=== PATIENT | male | born 1980 | race Caucasian/White ===

== ENCOUNTER 2016-09-04 06:43 | Emergency (ER) | payer OTHER ==
--- NOTE | 2016-09-04 07:25 | ED NURSING NOTES ---
Clinical Report - Nurses [facility] [address] [place] [address] 09/04/2016 6:45 Patient: WASHINGTON VALLE V TRIAGE Triage time 06:49 Sep 04 2016. Acuity: LEVEL 4. Chief Complaint: CONSTIPATION. --06:53 Gonzalo Shah R.N. 06:49 09/04/16. BP: 118/89. HR: 78. RR: 18. O2 saturation: 98%. Temp: 98.3 F. --06:53 Gonzalo Shah R.N. 06:55 09/04/16. Pain level now 0/10. --06:55 Gonzalo Shah R.N. Weight: 76.2 kg stated. Height/Length: 60 inches Per Patient. BMI: 32.8. --06:53 Gonzalo Shah R.N. Medications Unknown. --06:51 Gonzalo Shah R.N. Allergies No Known Drug Allergy. --06:51 Gonzalo Shah R.N. History Arrived by EMS. Historian: patient. ( Pt arrives via ems for constipation, pt last BM was "normal" and was yesterday. Pt has not taken anything at home as he does not have any money to pay for them.). SOCIAL HX: Light tobacco smoker. Occasional alcohol use. No drug use. --06:53 Gonzalo Shah R.N. ( Pt uncertain about what meds he takes, pt is legally blind can not see, hx of alcohol syndrome). --06:55 Gonzalo Shah R.N. Interventions ID band on patient. To treatment room. --06:53 Gonzalo Shah R.N. PHYSICAL ASSESSMENT ( no pain with urination). GENERAL / NEURO / PSYCH: Alert. Oriented X 4. Appears in no acute distress. RESPIRATORY: Respirations not labored. Breath sounds within normal limits. CVS: Normal sinus rhythm noted. GI / : Abdomen soft and nontender. Bowel sounds within normal limits. SKIN: Skin is warm and dry. --06:53 Gonzalo Shah R.N. NURSING PROGRESS NOTES Monitoring of patient in place. Patient gowned. Reassurance given. Call light placed in reach. Side rails up x 1. Patient ready for evaluation- chart flagged. --06:54 Gonzalo Shah R.N. DISPOSITION / DISCHARGE Departure time: 07:45. Condition at departure: unchanged. No learning barriers present. Reviewed medication(s) dosing and course information. Prescription(s) given to the patient. Treatments reviewed. Reviewed referral to family practice for followup. Reviewed need for increased fluid intake. Verbalized understanding. Written instructions provided. The patient was discharged home. He left the Emergency Department ambulatory and via ([employer]). --07:45 Carissa Medina R.N. Locked/Released at 09/09/2016 11:23 by Anuradha Herzog R.N.
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
--- NOTE | 2016-09-04 07:25 | ED NURSING NOTES ---
Clinical Report - Nurses [facility] [address] [place] [address] 09/04/2016 6:45 Patient: WASHINGTON VALLE V TRIAGE Triage time 06:49 Sep 04 2016. Acuity: LEVEL 4. Chief Complaint: CONSTIPATION. --06:53 Gonzalo Shah R.N. 06:49 09/04/16. BP: 118/89. HR: 78. RR: 18. O2 saturation: 98%. Temp: 98.3 F. --06:53 Gonzalo Shah R.N. 06:55 09/04/16. Pain level now 0/10. --06:55 Gonzalo Shah R.N. Weight: 76.2 kg stated. Height/Length: 60 inches Per Patient. BMI: 32.8. --06:53 Gonzalo Sahh R.N. Medications Unknown. --06:51 Gonzalo Shah R.N. Allergies No Known Drug Allergy. --06:51 Gonzalo Shah R.N. History Arrived by EMS. Historian: patient. ( Pt arrives via ems for constipation, pt last BM was "normal" and was yesterday. Pt has not taken anything at home as he does not have any money to pay for them.). SOCIAL HX: Light tobacco smoker. Occasional alcohol use. No drug use. --06:53 Gonzalo Shah R.N. ( Pt uncertain about what meds he takes, pt is legally blind can not see, hx of alcohol syndrome). --06:55 Gonzalo Shah R.N. Interventions ID band on patient. To treatment room. --06:53 Gonzalo Shah R.N. PHYSICAL ASSESSMENT ( no pain with urination). GENERAL / NEURO / PSYCH: Alert. Oriented X 4. Appears in no acute distress. RESPIRATORY: Respirations not labored. Breath sounds within normal limits. CVS: Normal sinus rhythm noted. GI / : Abdomen soft and nontender. Bowel sounds within normal limits. SKIN: Skin is warm and dry. --06:53 Gonzalo Shah R.N. NURSING PROGRESS NOTES Monitoring of patient in place. Patient gowned. Reassurance given. Call light placed in reach. Side rails up x 1. Patient ready for evaluation- chart flagged. --06:54 Gonzalo Shah R.N. DISPOSITION / DISCHARGE Departure time: 07:45. Condition at departure: unchanged. No learning barriers present. Reviewed medication(s) dosing and course information. Prescription(s) given to the patient. Treatments reviewed. Reviewed referral to family practice for followup. Reviewed need for increased fluid intake. Verbalized understanding. Written instructions provided. The patient was discharged home. He left the Emergency Department ambulatory and via ([employer]). --07:45 Carissa Medina R.N. Locked/Released at 09/09/2016 11:23 by Anuradha Herzog R.N.
--- NOTE | 2016-09-09 11:23 | ED MED RECONCILIATION SUMMARY ---
Patient: WASHINGTON VALLE V Medication Reconciliation Report [facility] VisitID: [id number] [address] [place] [address] 36y, M Registration Date/Time: 09/04/2016 Weight: 76.2 kg Height/Length: 60 in. BMI: 32.8 ALLERGIES: No Known Drug Allergy The patient's Home Medications are listed below: Unknown. The source(s) of the original Home Medication information: Not obtained. The following Medications were given to the patient in the Emergency Department: None. The following Medications were prescribed to the patient: Senokot 8.6 mg: Take 2 orally every day as needed for constipation until symptoms resolve. Dispense thirty (30). No refills. -- Rene Sharp Dr. Miralax: take 1 measuring cupful supplied mixed in 8 ounces juice at bedtime. Dispense twenty-six (26) ounce bottle. No refills. Substitution is permissible. -- Rene Sharp Dr. Colace 100 mg capsules (available over the counter): take 1 capsule orally and twice daily as needed for constipation, until symptoms improve. No refill. Substitution is permissible.(Disp 30 caps) -- Rene Sharp Dr.
--- NOTE | 2016-09-09 11:23 | ED MED RECONCILIATION SUMMARY ---
Patient: WASHINGTON VALLE V Medication Reconciliation Report [facility] VisitID: [id number] [address] [place] [address] 36y, M Registration Date/Time: 09/04/2016 Weight: 76.2 kg Height/Length: 60 in. BMI: 32.8 ALLERGIES: No Known Drug Allergy The patient's Home Medications are listed below: Unknown. The source(s) of the original Home Medication information: Not obtained. The following Medications were given to the patient in the Emergency Department: None. The following Medications were prescribed to the patient: Senokot 8.6 mg: Take 2 orally every day as needed for constipation until symptoms resolve. Dispense thirty (30). No refills. -- Rene Sharp Dr. Miralax: take 1 measuring cupful supplied mixed in 8 ounces juice at bedtime. Dispense twenty-six (26) ounce bottle. No refills. Substitution is permissible. -- Rene Sharp Dr. Colace 100 mg capsules (available over the counter): take 1 capsule orally and twice daily as needed for constipation, until symptoms improve. No refill. Substitution is permissible.(Disp 30 caps) -- Rene Sharp Dr.
--- NOTE | 2016-09-09 11:23 | ED DISCHARGE INSTRUCTIONS ---
Patient: WASHINGTON VALLE V General Instructions [facility] VisitID: [id number] [address] [place] [address] 36y, M Registration Date/Time: 09/04/2016 Constipation (acute). INSTRUCTIONS Warnings: GENERAL WARNINGS: Return or contact your physician immediately if your condition worsens or changes unexpectedly, if not improving as expected, or if other problems arise. Specifically return if pain, vomiting, bleeding, breathing difficulty or fever. Your Current Medications: CONTINUE TAKING THE FOLLOWING MEDICATIONS: Unknown*. Prescription Medications: Miralax: take 1 measuring cupful supplied mixed in 8 ounces juice at bedtime. Dispense twenty-six (26) ounce bottle. No refills. Substitution is permissible. OTC Medications: Senokot 8.6 mg: Take 2 orally every day as needed for constipation until symptoms resolve. Dispense thirty (30). No refills. Colace 100 mg capsules (available over the counter): take 1 capsule orally and twice daily as needed for constipation, until symptoms improve. No refill. Substitution is permissible. (Disp 30 caps) Follow-up: Return to the emergency department as needed. Follow up with your doctor in three days. Reason for referral: recheck today's concerns. Summary of care provided to patient via paper. Screening today revealed the patient's blood pressure to be in the normal range. The patient should follow up with a primary care provider for blood pressure management. ADDITIONAL INFORMATION Constipation (Adult) Constipation is bowel movements that are less frequent than usual. Stools often become very hard and difficult to pass. This may lead to abdominal pain and bloating. It may also cause painful bowel movements. Constipation may be due to a diet thats low in fiber. Some medications, especially pain medications, can also cause it. Constipation may be treated with enemas, suppositories, laxatives or stool softeners. Your doctor will advise you which will work best for you. Follow the advice below to help avoid this problem in the future. Home Care Medication: Take any medicines as directed. Some laxatives are safe only for occasional use. Others can be taken on a regular basis. Talk to your doctor or pharmacist if you have questions. General Care: Prescription pain medications can cause constipation. If you are prescribed pain medications, ask the doctor whether you should also take a stool softener. A diet high in fiber with plenty of fluids helps to maintain regular, soft bowel movements. The following foods are good sources of dietary fiber: Cereals and breads: Whole grain cereal with bran, oatmeal, rolled oats, whole grain breads Fruits: All fruits (fresh and dried), raisins, prunes, apricots, berries, figs Vegetables: Any fresh vegetables, especially peas, broccoli, brussels sprouts, winter squash, green beans, cauliflower, ponce beans, carrots Other: Popcorn, brown rice Drink plenty of water when you increase the amount of fiber you eat. Follow Up with your doctor or return to this facility if symptoms do not improve in the next few days. You may require further tests or a referral to a specialist. Get Prompt Medical Attention if any of the following occur: Fever over 100.4F (38C) Failure to resume normal bowel movements Increasing abdominal or back pain Nausea or vomiting Abdominal swelling Blood in the stool Weakness, dizziness or fainting Unexpected vaginal bleeding Docusate Sodium Oral tablet What is this medicine? DOCUSATE (doc CUE sayt) is stool softener. It helps prevent constipation and straining or discomfort associated with hard or dry stools. How should I use this medicine? Take this medicine by mouth with a glass of water. Follow the directions on the label. Take your doses at regular intervals. Do not take your medicine more often than directed. Talk to your trade recruiter regarding the use of this medicine in children. While this medicine may be prescribed for children as young as 2 years for selected conditions, precautions do apply. What side effects may I notice from receiving this medicine? Side effects that you should report to your doctor or health medicare sales executive as soon as possible: allergic reactions like skin rash, itching or hives, swelling of the face, lips, or tongue Side effects that usually do not require medical attention (report to your doctor or health medicare sales executive if they continue or are bothersome): diarrhea stomach cramps throat irritation What may interact with this medicine? mineral oil What if I miss a dose? If you miss a dose, take it as soon as you can. If it is almost time for your next dose, take only that dose. Do not take double or extra doses. Where should I keep my medicine? Keep out of the reach of children. Store at room temperature between 15 and 30 degrees C (59 and 86 degrees F). Throw away any unused medicine after the expiration date. What should I tell my health care provider before I take this medicine? They need to know if you have any of these conditions: nausea or vomiting severe constipation stomach pain sudden change in bowel habit lasting more than 2 weeks an unusual or allergic reaction to docusate, other medicines, foods, dyes, or preservatives or trying to get breast-feeding What should I watch for while using this medicine? Do not use for more than one week without advice from your doctor or health medicare sales executive. If your constipation returns, check with your doctor or health medicare sales executive. Drink plenty of water while taking this medicine. Drinking water helps decrease constipation. Stop using this medicine and contact your doctor or health medicare sales executive if you experience any rectal bleeding or do not have a bowel movement after use. These could be signs of a more serious condition. You have been given the following additional information: Constipation (Adult) Docusate Sodium Oral tablet (Electronically signed by Rene Sharp Dr. 09/08/2016 9:03)
--- NOTE | 2016-09-09 11:23 | ED DISCHARGE INSTRUCTIONS ---
Patient: WASHINGTON VALLE V General Instructions [facility] VisitID: [id number] [address] [place] [address] 36y, M Registration Date/Time: 09/04/2016 Constipation (acute). INSTRUCTIONS Warnings: GENERAL WARNINGS: Return or contact your physician immediately if your condition worsens or changes unexpectedly, if not improving as expected, or if other problems arise. Specifically return if pain, vomiting, bleeding, breathing difficulty or fever. Your Current Medications: CONTINUE TAKING THE FOLLOWING MEDICATIONS: Unknown*. Prescription Medications: Miralax: take 1 measuring cupful supplied mixed in 8 ounces juice at bedtime. Dispense twenty-six (26) ounce bottle. No refills. Substitution is permissible. OTC Medications: Senokot 8.6 mg: Take 2 orally every day as needed for constipation until symptoms resolve. Dispense thirty (30). No refills. Colace 100 mg capsules (available over the counter): take 1 capsule orally and twice daily as needed for constipation, until symptoms improve. No refill. Substitution is permissible. (Disp 30 caps) Follow-up: Return to the emergency department as needed. Follow up with your doctor in three days. Reason for referral: recheck today's concerns. Summary of care provided to patient via paper. Screening today revealed the patient's blood pressure to be in the normal range. The patient should follow up with a primary care provider for blood pressure management. ADDITIONAL INFORMATION Constipation (Adult) Constipation is bowel movements that are less frequent than usual. Stools often become very hard and difficult to pass. This may lead to abdominal pain and bloating. It may also cause painful bowel movements. Constipation may be due to a diet thats low in fiber. Some medications, especially pain medications, can also cause it. Constipation may be treated with enemas, suppositories, laxatives or stool softeners. Your doctor will advise you which will work best for you. Follow the advice below to help avoid this problem in the future. Home Care Medication: Take any medicines as directed. Some laxatives are safe only for occasional use. Others can be taken on a regular basis. Talk to your doctor or pharmacist if you have questions. General Care: Prescription pain medications can cause constipation. If you are prescribed pain medications, ask the doctor whether you should also take a stool softener. A diet high in fiber with plenty of fluids helps to maintain regular, soft bowel movements. The following foods are good sources of dietary fiber: Cereals and breads: Whole grain cereal with bran, oatmeal, rolled oats, whole grain breads Fruits: All fruits (fresh and dried), raisins, prunes, apricots, berries, figs Vegetables: Any fresh vegetables, especially peas, broccoli, brussels sprouts, winter squash, green beans, cauliflower, ponce beans, carrots Other: Popcorn, brown rice Drink plenty of water when you increase the amount of fiber you eat. Follow Up with your doctor or return to this facility if symptoms do not improve in the next few days. You may require further tests or a referral to a specialist. Get Prompt Medical Attention if any of the following occur: Fever over 100.4F (38C) Failure to resume normal bowel movements Increasing abdominal or back pain Nausea or vomiting Abdominal swelling Blood in the stool Weakness, dizziness or fainting Unexpected vaginal bleeding Docusate Sodium Oral tablet What is this medicine? DOCUSATE (doc CUE sayt) is stool softener. It helps prevent constipation and straining or discomfort associated with hard or dry stools. How should I use this medicine? Take this medicine by mouth with a glass of water. Follow the directions on the label. Take your doses at regular intervals. Do not take your medicine more often than directed. Talk to your associate software engineer regarding the use of this medicine in children. While this medicine may be prescribed for children as young as 2 years for selected conditions, precautions do apply. What side effects may I notice from receiving this medicine? Side effects that you should report to your doctor or health foster care therapist as soon as possible: allergic reactions like skin rash, itching or hives, swelling of the face, lips, or tongue Side effects that usually do not require medical attention (report to your doctor or health foster care therapist if they continue or are bothersome): diarrhea stomach cramps throat irritation What may interact with this medicine? mineral oil What if I miss a dose? If you miss a dose, take it as soon as you can. If it is almost time for your next dose, take only that dose. Do not take double or extra doses. Where should I keep my medicine? Keep out of the reach of children. Store at room temperature between 15 and 30 degrees C (59 and 86 degrees F). Throw away any unused medicine after the expiration date. What should I tell my health care provider before I take this medicine? They need to know if you have any of these conditions: nausea or vomiting severe constipation stomach pain sudden change in bowel habit lasting more than 2 weeks an unusual or allergic reaction to docusate, other medicines, foods, dyes, or preservatives or trying to get breast-feeding What should I watch for while using this medicine? Do not use for more than one week without advice from your doctor or health foster care therapist. If your constipation returns, check with your doctor or health foster care therapist. Drink plenty of water while taking this medicine. Drinking water helps decrease constipation. Stop using this medicine and contact your doctor or health foster care therapist if you experience any rectal bleeding or do not have a bowel movement after use. These could be signs of a more serious condition. You have been given the following additional information: Constipation (Adult) Docusate Sodium Oral tablet (Electronically signed by Rene Sharp Dr. 09/08/2016 9:03)
--- NOTE | 2016-09-09 11:23 | ED MAR SUMMARY ---
..... Medication Administration Record [facility] [address], [place] [id number] Patient: WASHINGTON VALLE V Visit ID: [id number] 36y, M Weight: 76.2 kg Height/Length: 60 in BMI: 32.8 ALLERGIES: No Known Drug Allergy
--- NOTE | 2016-09-09 11:23 | ED MAR SUMMARY ---
..... Medication Administration Record [facility] [address], [place] [id number] Patient: WASHINGTON VALLE V Visit ID: [id number] 36y, M Weight: 76.2 kg Height/Length: 60 in BMI: 32.8 ALLERGIES: No Known Drug Allergy
== END 2016-09-04 07:45 | disposition home or self-care (01) ==
LOC: ED SRH 06:43 → EDBD 06:46 → ED SRH 07:45
DX: K59.00 Constipation, unspecified (principal)

== ENCOUNTER 2016-11-29 20:57 | Emergency (ER) | payer OTHER ==
--- NOTE | 2016-11-29 22:34 | ED ORDER SUMMARY ---
..... Patient: WASHINGTON VALLE V OrderSheet [facility] VisitID: [id number] [place] [address] 36y, M Registration Date/Time: 11/29/2016 ORDER SHEET Weight: 68.0 kg (stated) Allergies: Ritalin GENERAL ORDERS: CBC w Diff Urgent (21:42 11/29/2016 CBradburn R.N. per protocol) (Ack 21:48 AMcQuoid ER Tech1) (21:48 CBradburn R.N.) CMP Urgent (21:42 11/29/2016 CBradburn R.N. per protocol) (Ack 21:48 AMcQuoid ER Tech1) (21:48 CBradburn R.N.) UA-Culture if indicated Urgent (21:42 11/29/2016 CBradburn R.N. per protocol) (Ack 21:48 AMcQuoid ER Tech1) (21:48 CBradburn R.N.) Rapid Influenza Screen (Nasal Pharyngeal) (nasal for flu) Urgent (21:46 11/29/2016 ABlanchette PA-C) (Ack 21:48 AMcQuoid ER Tech1) (22:02 CBradburn R.N.) Culture, Throat Urgent (21:47 11/29/2016 ABlanchette PA-C) (Ack 21:48 AMcQuoid ER Tech1) (22:02 CBradburn R.N.) Culture, Strep Screen Urgent (21:47 11/29/2016 ABlanchette PA-C) (Ack 21:48 AMcQuoid ER Tech1) (22:02 CBradburn R.N.) Chest 2V (sudden onset fever and chills r/o pneumonia, smoker) Urgent (21:56 11/29/2016 ABlanchette PA-C) (Ack 21:57 AMcQuoid ER Tech1) (22:07 CBradburn R.N.) MEDICATION ORDERS: Ibuprofen PO 800 mg (NOW) (21:47 11/29/2016 ABlanchette PA-C) (Ack 21:49 CBradburn R.N.) (22:04 CBradburn R.N.) Tamiflu PO 75 mg (NOW) (22:27 11/29/2016 Liv DODD) (22:29 HSkan) IV FLUIDS: IV NS with Normal Saline 1 Liter: initial bolus none -, then 1000 mL/hr for X1 (NOW) (21:47 11/29/2016 Liv DODD) (Ack 21:49 Meet R.N.) (22:04 Meet R.N.) ORDER SHEET NOTES: [Electronically signed by Lidya Martinez R.N. (22:58 11/29/2016)] [Electronically signed by Kasey Apple PA-C (23:51 11/29/2016)] [Electronically locked/signed by Lidya Martinez R.N. (22:58 11/29/2016)]
--- NOTE | 2016-11-29 22:34 | ED NURSING NOTES ---
Clinical Report - Nurses [facility] [address] [place] [address] 11/29/2016 21:02 Patient: WASHINGTON VALLE V TRIAGE Triage time 21:17. Chief Complaint: FEVER, COUGH, SORE THROAT and BODY ACHES. --21:26 Lidya Martinez R.N. 21:17 11/29/16. BP: 157/74. HR: 117. RR: 18. O2 saturation: 97%. Temp: 102.4 F (oral). Pain level now: 02/16. --21:26 Lidya Martinez R.N. Weight: 68 kg stated. Height/Length: 60 inches Per Patient. BMI: 29.3. --21:24 Lidya Martinez R.N. Medications Omeprazole Oral. --21:19 Lidya Martinez R.N. Allergies Ritalin. Definite Moderate(anxiety) --21:20 Lidya Martinez R.N. History Arrived by EMS, and from home (stretcher). Primary physician (colette). This started today. He has had contact with a sick individual. He has had chest congestion, chills, fatigue, a headache and vomiting. PAST MEDICAL HX: Immunizations: up-to-date. SOCIAL HX: Current every day heavy tobacco smoker, start date 2011 (cigarette)- 1 pack per day. Occasional alcohol use; consumes beer occasionally. No drug use. --21:26 Lidya Martinez R.N. 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 --21:22 Lidya Martinez R.N. Interventions ID band on patient. --21:26 Lidya Martinez R.N. PHYSICAL ASSESSMENT To room via stretcher. GENERAL / NEURO / PSYCH: Alert. Oriented X 4. Appears in pain. HEENT: Pupils equal, round and reactive to light. Sinus tenderness present. Runny nose. RESPIRATORY: Respirations not labored. Breath sounds within normal limits. CVS: Capillary refill is greater than 2 seconds. Pulses within normal limits. GI / : Abdomen nontender. SKIN: Skin intact. Skin is dry. Hot skin. --21:27 Lidya Martinez R.N. NURSING PROGRESS NOTES 21:28 11/29/2016 Site #1 started via IV in the left antecubital space with an 20g angiocath, with aseptic technique and good blood return; one attempt. Blood drawn: rainbow set. Labeled in the presence of the patient and sent to the lab. Saline lock flushed with 10 mL saline. --21:28 Lidya Martinez R.N. Patient gowned. Two patient identifiers checked. Call light placed in reach. Side rails up x 1. Bed placed in lowest position. Brakes of bed on. --21:28 Lidya Martinez R.N. Patient ready for evaluation- chart flagged. --21:29 Lidya Martinez R.N. Patient ID band checked for patient name and birthdate. Instructions provided to collect clean catch urine and patient verbalized understanding urine collected with return of yellow-colored clear urine; sample sent to lab for urinalysis. Specimen labeled in the presence of the patient. Two patient identifiers checked. Call light placed in reach. Side rails up x 1. Bed placed in lowest position. Brakes of bed on. --21:43 Lidya Martinez R.N. 21:53 11/29/2016 Started bag #1 1000 mL IV Fluids IV NS (Saline); bolus of 1000 mL wide open via site #1. Allergies verified and confirmed 5 rights. IV patency established. IV site checked: no pain, redness, or swelling. IV flushed thoroughly pre- and post-medication administration. --22:04 Lidya Martinez R.N. 21:55 11/29/2016 Ibuprofen PO Tablets 800 mg given. Allergies verified and confirmed 5 rights. --22:04 Lidya Martinez R.N. Patient ID band checked for patient name and birthdate: patient confirmed. Flu swab obtained by RN via nasal swab. Labeled in the presence of the patient. Patient ID band checked for patient name and birthdate: patient confirmed. Throat swab obtained for rapid strep and culture; labeled in the presence of the patient and sent to lab. --22:06 Lidya Martinez R.N. 22:04 11/29/16. BP: 155/92. HR: 117. RR: 18. O2 saturation: 97% on room air. Temp: deferred. Pain level now: 4/10. --22:06 Lidya Martinez R.N. Patient transported to radiology by stretcher with tech. (22:06). --22:07 Lidya Martinez R.N. Patient returned from radiology by stretcher with tech. (22:11 Nov 29 2016). --22:11 KalpanaDiane brewer Patient returned from radiology by stretcher with tech. (22:12). --22:12 Lidya Martinez R.N. 22:29 11/29/2016 Tamiflu PO Capsules 75 mg given. Allergies verified and confirmed 5 rights. --22:29 Diane Acuna. DISPOSITION / DISCHARGE 22:49 11/29/2016 Site #1 removed upon discharge. Catheter intact. Manual pressure and bandage applied. --22:55 Lidya Martinez R.N. 22:49 11/29/2016 IV Fluids IV NS Discontinued: bag #1 completed upon discharge. Total amount infused: 1000 mL. IV patency established. IV site checked: no pain, redness, or swelling. IV flushed thoroughly. --22:55 Lidya Martinez R.N. Departure time: 2248. Condition at departure: unchanged. No learning barriers present. Discharge instructions provided and reviewed with the patient. Reviewed medication(s) side effects, precautions, dosing and course information. Prescription(s) given to the patient. Work note given. Patient verbalized understanding. Written instructions provided in Frisian. The patient was discharged by the physician senior executive assistant. He was discharged home. He left the Emergency Department in a wheelchair and via ([employer] link transportation). Driving (private transportation). --22:58 Lidya Martinez R.N. 22:52 11/29/16. BP: 152/81. HR: 116. RR: 18. O2 saturation: 97% on room air. Temp: 101.9 F. Pain level now: 0/10. --22:58 Lidya Martinez R.N. Locked/Released at 11/29/2016 22:58 by Lidya Martinez R.N.
--- NOTE | 2016-11-29 22:34 | ED NURSING NOTES ---
Clinical Report - Nurses [facility] [address] [place] [address] 11/29/2016 21:02 Patient: WASHINGTON VALLE V TRIAGE Triage time 21:17. Chief Complaint: FEVER, COUGH, SORE THROAT and BODY ACHES. --21:26 Lidya Martinez R.N. 21:17 11/29/16. BP: 157/74. HR: 117. RR: 18. O2 saturation: 97%. Temp: 102.4 F (oral). Pain level now: 02/16. --21:26 Lidya Martinez R.N. Weight: 68 kg stated. Height/Length: 60 inches Per Patient. BMI: 29.3. --21:24 Lidya Martinez R.N. Medications Omeprazole Oral. --21:19 Lidya Martinez R.N. Allergies Ritalin. Definite Moderate(anxiety) --21:20 Lidya Martinez R.N. History Arrived by EMS, and from home (stretcher). Primary physician (colette). This started today. He has had contact with a sick individual. He has had chest congestion, chills, fatigue, a headache and vomiting. PAST MEDICAL HX: Immunizations: up-to-date. SOCIAL HX: Current every day heavy tobacco smoker, start date 2011 (cigarette)- 1 pack per day. Occasional alcohol use; consumes beer occasionally. No drug use. --21:26 Lidya Martinez R.N. 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 --21:22 Lidya Martinez R.N. Interventions ID band on patient. --21:26 Lidya Martinez R.N. PHYSICAL ASSESSMENT To room via stretcher. GENERAL / NEURO / PSYCH: Alert. Oriented X 4. Appears in pain. HEENT: Pupils equal, round and reactive to light. Sinus tenderness present. Runny nose. RESPIRATORY: Respirations not labored. Breath sounds within normal limits. CVS: Capillary refill is greater than 2 seconds. Pulses within normal limits. GI / : Abdomen nontender. SKIN: Skin intact. Skin is dry. Hot skin. --21:27 Lidya Martinez R.N. NURSING PROGRESS NOTES 21:28 11/29/2016 Site #1 started via IV in the left antecubital space with an 20g angiocath, with aseptic technique and good blood return; one attempt. Blood drawn: rainbow set. Labeled in the presence of the patient and sent to the lab. Saline lock flushed with 10 mL saline. --21:28 Lidya Martinez R.N. Patient gowned. Two patient identifiers checked. Call light placed in reach. Side rails up x 1. Bed placed in lowest position. Brakes of bed on. --21:28 Lidya Martinez R.N. Patient ready for evaluation- chart flagged. --21:29 Lidya Martinez R.N. Patient ID band checked for patient name and birthdate. Instructions provided to collect clean catch urine and patient verbalized understanding urine collected with return of yellow-colored clear urine; sample sent to lab for urinalysis. Specimen labeled in the presence of the patient. Two patient identifiers checked. Call light placed in reach. Side rails up x 1. Bed placed in lowest position. Brakes of bed on. --21:43 Lidya Martinez R.N. 21:53 11/29/2016 Started bag #1 1000 mL IV Fluids IV NS (Saline); bolus of 1000 mL wide open via site #1. Allergies verified and confirmed 5 rights. IV patency established. IV site checked: no pain, redness, or swelling. IV flushed thoroughly pre- and post-medication administration. --22:04 Lidya Martinez R.N. 21:55 11/29/2016 Ibuprofen PO Tablets 800 mg given. Allergies verified and confirmed 5 rights. --22:04 Lidya Martinez R.N. Patient ID band checked for patient name and birthdate: patient confirmed. Flu swab obtained by RN via nasal swab. Labeled in the presence of the patient. Patient ID band checked for patient name and birthdate: patient confirmed. Throat swab obtained for rapid strep and culture; labeled in the presence of the patient and sent to lab. --22:06 Lidya Martinez R.N. 22:04 11/29/16. BP: 155/92. HR: 117. RR: 18. O2 saturation: 97% on room air. Temp: deferred. Pain level now: 4/10. --22:06 Lidya Martinez R.N. Patient transported to radiology by stretcher with tech. (22:06). --22:07 Lidya Martinez R.N. Patient returned from radiology by stretcher with tech. (22:11 Nov 29 2016). --22:11 KalpanaDiane brewer Patient returned from radiology by stretcher with tech. (22:12). --22:12 Lidya Martinez R.N. 22:29 11/29/2016 Tamiflu PO Capsules 75 mg given. Allergies verified and confirmed 5 rights. --22:29 Diane Acuna. DISPOSITION / DISCHARGE 22:49 11/29/2016 Site #1 removed upon discharge. Catheter intact. Manual pressure and bandage applied. --22:55 Lidya Martinez R.N. 22:49 11/29/2016 IV Fluids IV NS Discontinued: bag #1 completed upon discharge. Total amount infused: 1000 mL. IV patency established. IV site checked: no pain, redness, or swelling. IV flushed thoroughly. --22:55 Lidya Martinez R.N. Departure time: 2248. Condition at departure: unchanged. No learning barriers present. Discharge instructions provided and reviewed with the patient. Reviewed medication(s) side effects, precautions, dosing and course information. Prescription(s) given to the patient. Work note given. Patient verbalized understanding. Written instructions provided in Armenian. The patient was discharged by the physician educational program assistant. He was discharged home. He left the Emergency Department in a wheelchair and via ([employer] link transportation). Driving (private transportation). --22:58 Lidya aMrtinez R.N. 22:52 11/29/16. BP: 152/81. HR: 116. RR: 18. O2 saturation: 97% on room air. Temp: 101.9 F. Pain level now: 0/10. --22:58 Lidya Martinez R.N. Locked/Released at 11/29/2016 22:58 by Lidya Martinez R.N.
--- NOTE | 2016-11-29 22:34 | ED CLINICAL REPORT ---
Clinical Report - Physicians/Mid Levels [facility] [address] [place] [address] 11/29/2016 21:02 Patient: WASHINGTON VALLE V Time Seen: 21:45; initial patient contact. Arrived- By private vehicle. Historian- patient. HISTORY OF PRESENT ILLNESS Chief Complaint: COUGH, FEVER, CHILLS and MUSCLE ACHES. This started today pt was in a van coming home from [facility] when he developed fever, chills, and body aches, with sore throat. he has a history of FAS. and is still present and worsening. The illness is described as moderate. The patient has had sputum production, a cough, a sore throat, nasal congestion and sinus pressure. He has had fever of 102 F, chills and a nasal discharge. Additional history - No known contact with a sick individual. He has had recent travel. Similar symptoms previously: None. Recent medical care: Not recently seen/assessed. REVIEW OF SYSTEMS The patient has had a mild headache. No nausea, vomiting, diarrhea or abdominal pain. All systems otherwise negative, except as recorded above. PAST HISTORY See nurses notes. 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 Constipation. Medications: Omeprazole Oral. Allergies: Ritalin. Definite Moderate(anxiety). SOCIAL HISTORY Heavy tobacco smoker (cigarette)- 1 pack per day. Alcohol use. No drug use. FAMILY HISTORY Negative. ADDITIONAL NOTES The nursing notes have been reviewed with agreement regarding the chief complaint, HPI, ROS, PMH and patient medications and allergies. PHYSICAL EXAM Vital Signs: 11/29/2016 22:52 BP: 152/81. HR: 116. RR: 18. O2 saturation: 97%. Temp: 101.9 F. Pain level now: 010. 11/29/2016 22:04 BP: 155/92. HR: 117. RR: 18. O2 saturation: 97%. Pain level now: 11/17. 11/29/2016 21:17 BP: 157/74. HR: 117. RR: 18. O2 saturation: 97%. Temp: 102.4 F. Pain level now: 02/16. Have been reviewed. Appearance: Alert. No acute distress. Eyes: Pupils equal, round and reactive to light. ENT: Ears normal. Nose normal. Mild generalized pharyngeal erythema. No pharyngeal vesicles or ulcerations. Pharynx normal. Uvula midline. Neck: Normal inspection. Neck supple. CVS: Tachycardia. Heart sounds normal. Pulses normal. Respiratory: No respiratory distress. Breath sounds normal. Abdomen: Soft and nontender. No organomegaly. Back: Normal inspection. Skin: Skin warm and dry. Normal skin color. No rash. Normal skin turgor. Extremities: Extremities exhibit normal ROM. No lower extremity edema. Neuro: Oriented X 3. LABS, X-RAYS, AND EKG Chest X-ray: No acute disease. Normal Chest X-Ray. (Name: Washington Valle : 1980 MR#: [id number] Ordering Provider: SEGUNDO ANNA Exam(s): XR CHEST 2 VIEW Date of Exam: 11/29/2016 __ PROCEDURE: XR CHEST 2 VIEW INDICATION: SHORTNESS OF BREATH TECHNIQUE: PA and lateral view. COMPARISON: None. FINDINGS: Poor inspiration with mild bibasilar atelectasis. Cardiovascular structures are normal. Bony thorax is unremarkable. IMPRESSION: 1. Poor aspiration with mild bibasilar atelectasis. Electronically Final signed by:Sharath Slade MD 11/29/2016 11:07:21 PM Technologist: ARAMIS). The X-rays were independently viewed by me, interpreted by the radiologist and discussed with the radiologist. Laboratory Tests: UA-Culture if indicated: (YOVANI: 11/29/2016 21:34) ( MsgRcvd 11/29/2016 22:04) Final results Test Result Flag Units (Reference) URINE COLOR YELLOW URINE APPEARANCE CLEAR URINE GLUCOSE NEGATIVE (NEGATIVE) URINE BILIRUBIN NEGATIVE (NEGATIVE) URINE KETONE NEGATIVE (NEGATIVE) URINE SPECIFIC GRAVITY 1.010 (1.010-1.030) URINE PH 6.0 (5.0-8.0) URINE PROTEIN NEGATIVE (NEGATIVE) URINE UROBILINOGEN 0.2 EU/dL (0.2-1.0) URINE NITRITE NEGATIVE (NEGATIVE) URINE BLOOD TRACE-INTACT (NEGATIVE) URINE LEUK ESTERASE NEGATIVE (NEGATIVE) URINE RBC RARE rbc/hpf (0-1) URINE WBC NONE SEEN wbc/hpf (0-1) URINE EPITHELIAL CELLS NONE SEEN EPI/hpf (0-5) URINE BACTERIA NONE SEEN (NONE SEEN) URINE COMMENT CULT NOT INDICATED URINE CULTURES ARE SET-UP BASED ON THE FOLLOWING CRITERIA:POSITIVE NITRITEPOSITIVE LEUKOCYTE ESTERASEGREATER THAN 10 WHITE BLOOD CELLSMODERATE (2+) OR GREATER BACTERIA CBC w Diff: (YOVANI: 11/29/2016 21:20) ( [facility] [place] [facility] [place]01) Final results Test Result Flag Units (Reference) WHITE BLOOD COUNT 11.1 K/uL (4.5-11.5) RED BLOOD COUNT 5.26 M/uL (4.50-5.90) HEMOGLOBIN 15.2 gm/dL (13.5-17.5) HEMATOCRIT 44.9 % (41.0-53.0) MEAN CELL VOLUME 86 fL (80-100) MEAN CORPUSCULAR HGB 29 pg (26-34) MEAN CORPUSCULAR HGB CONC 34 g/dL (31-37) RED CELL DISTRIBUTION WIDTH 13.5 % (11.6-14.8) PLATELET COUNT 163 K/uL (150-400) NEUTROPHIL % 85.0 H % (50-75) LYMPH % 10.9 L % (25-40) MONO % 3.4 % (3-14) EOSINOPHIL % 0.7 % (0-4) BASOPHIL % 0 % (0-2) CMP: (YOVANI: 11/29/2016 21:20) ( [facility] [place] 11/29/2016 22:14) Final results Test Result Flag Units (Reference) GLUCOSE 120 H mg/dL (70-110) BUN 13 mg/dL (7-18) CREATININE 1.1 mg/dL (0.6-1.3) Estimated GFR >60 mL/min Estimated GFR- >60 mL/min Note: Persistent reduction over 3 months in eGFR<60 mL/min/1.73 m2 defines CKD. Patients with eGFR values>=60 mL/min/1.73 m2 may also have CKD if evidence ofpersistent proteinuria. Additional information may be foundat [email or web address]. SODIUM 141 mmol/L (136-145) POTASSIUM 3.8 mmol/L (3.5-5.1) CHLORIDE 104 mmol/L (98-107) CARBON DIOXIDE 26 mmol/L (21-32) CALCIUM 9.9 mg/dL (8.5-10.1) TOTAL PROTEIN 7.9 g/dL (6.4-8.2) ALBUMIN 4.3 g/dL (3.3-5.0) BILIRUBIN, TOTAL 0.3 mg/dL (0.0-1.0) ALKALINE PHOSPHATASE 95 U/L (46-116) AST (SGOT) 31 U/L (15-37) ALT (SGPT) 40 U/L (12-78) Culture, Strep Screen: (YOVANI: 11/29/2016 21:50) ( MsgRcvd 11/29/2016 22:26) Final results Test Result Flag Units (Reference) RAPID STREP SCREEN - THROAT DATE: 11/29/16 NEGATIVE SCREEN: RAPID STREP SCREEN NEGATIVE; CONFIRMATION TO FOLLOW Rapid Influenza Screen: (YOVANI: 11/29/2016 21:54) ( MsgRcvd 11/29/2016 22:26) Final results SPECIMEN DESCRIPTION: NASAL FOR FLU Test Result Flag Units (Reference) RAPID INFLUENZA SCREEN CALLED TO: ANIA -- DATE: 11/29/16 INFLUENZA A: NEGATIVE SCREEN FOR INFLUENZA A INFLUENZA B: POSITIVE SCREEN FOR INFLUENZA B . PROGRESS AND PROCEDURES Course of Care: Patient is stable. Physical exam findings are unchanged. CLINICAL IMPRESSION Influenza type B with pharyngitis. INSTRUCTIONS Alternate Tylenol (Acetaminophen) or Motrin (Ibuprofen) for temperature greater than 100 degrees orally. Take according to label instructions. Rest for three days until better. Do not work for four days until better. Drink plenty of fluids. Do not smoke. No alcohol. Warnings: GENERAL WARNINGS: Return or contact your physician immediately if your condition worsens or changes unexpectedly, if not improving as expected, or if other problems arise. Your Current Medications: CONTINUE TAKING THE FOLLOWING MEDICATIONS: Omeprazole Oral. Prescription Medications: Tamiflu 75 mg: take 1 capsule orally every 12 hours for 5 days. No refill. Substitution is permissible. Follow-up: Follow up with your doctor Thursday if not better. Understanding of the discharge instructions verbalized by patient. (Electronically signed by Segundo Anna PA-C 11/29/2016 23:51)
--- NOTE | 2016-11-29 22:34 | ED ORDER SUMMARY ---
..... Patient: WASHINGTON VALLE V OrderSheet [facility] VisitID: [id number] [place] [place] [address] 36y, M Registration Date/Time: 11/29/2016 ORDER SHEET Weight: 68.0 kg (stated) Allergies: Ritalin GENERAL ORDERS: CBC w Diff Urgent (21:42 11/29/2016 CBradburn R.N. per protocol) (Ack 21:48 AMcQuoid ER Tech1) (21:48 CBradburn R.N.) CMP Urgent (21:42 11/29/2016 CBradburn R.N. per protocol) (Ack 21:48 AMcQuoid ER Tech1) (21:48 CBradburn R.N.) UA-Culture if indicated Urgent (21:42 11/29/2016 CBradburn R.N. per protocol) (Ack 21:48 AMcQuoid ER Tech1) (21:48 CBradburn R.N.) Rapid Influenza Screen (Nasal Pharyngeal) (nasal for flu) Urgent (21:46 11/29/2016 ABlanchette PA-C) (Ack 21:48 AMcQuoid ER Tech1) (22:02 CBradburn R.N.) Culture, Throat Urgent (21:47 11/29/2016 ABlanchette PA-C) (Ack 21:48 AMcQuoid ER Tech1) (22:02 CBradburn R.N.) Culture, Strep Screen Urgent (21:47 11/29/2016 ABlanchette PA-C) (Ack 21:48 AMcQuoid ER Tech1) (22:02 CBradburn R.N.) Chest 2V (sudden onset fever and chills r/o pneumonia, smoker) Urgent (21:56 11/29/2016 ABlanchette PA-C) (Ack 21:57 AMcQuoid ER Tech1) (22:07 CBradburn R.N.) MEDICATION ORDERS: Ibuprofen PO 800 mg (NOW) (21:47 11/29/2016 ABlanchette PA-C) (Ack 21:49 CBradburn R.N.) (22:04 CBradburn R.N.) Tamiflu PO 75 mg (NOW) (22:27 11/29/2016 Liv DODD) (22:29 HSkan) IV FLUIDS: IV NS with Normal Saline 1 Liter: initial bolus none -, then 1000 mL/hr for X1 (NOW) (21:47 11/29/2016 Liv DODD) (Ack 21:49 Meet R.N.) (22:04 Meet R.N.) ORDER SHEET NOTES: [Electronically signed by Lidya Martinez R.N. (22:58 11/29/2016)] [Electronically signed by Kasey Apple PA-C (23:51 11/29/2016)] [Electronically locked/signed by Lidya Martinez R.N. (22:58 11/29/2016)]
--- NOTE | 2016-11-29 22:34 | ED CLINICAL REPORT ---
Clinical Report - Physicians/Mid Levels [facility] [address] [place] [address] 11/29/2016 21:02 Patient: WASHINGTON VALLE V Time Seen: 21:45; initial patient contact. Arrived- By private vehicle. Historian- patient. HISTORY OF PRESENT ILLNESS Chief Complaint: COUGH, FEVER, CHILLS and MUSCLE ACHES. This started today pt was in a van coming home from [facility] when he developed fever, chills, and body aches, with sore throat. he has a history of FAS. and is still present and worsening. The illness is described as moderate. The patient has had sputum production, a cough, a sore throat, nasal congestion and sinus pressure. He has had fever of 102 F, chills and a nasal discharge. Additional history - No known contact with a sick individual. He has had recent travel. Similar symptoms previously: None. Recent medical care: Not recently seen/assessed. REVIEW OF SYSTEMS The patient has had a mild headache. No nausea, vomiting, diarrhea or abdominal pain. All systems otherwise negative, except as recorded above. PAST HISTORY See nurses notes. 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 Constipation. Medications: Omeprazole Oral. Allergies: Ritalin. Definite Moderate(anxiety). SOCIAL HISTORY Heavy tobacco smoker (cigarette)- 1 pack per day. Alcohol use. No drug use. FAMILY HISTORY Negative. ADDITIONAL NOTES The nursing notes have been reviewed with agreement regarding the chief complaint, HPI, ROS, PMH and patient medications and allergies. PHYSICAL EXAM Vital Signs: 11/29/2016 22:52 BP: 152/81. HR: 116. RR: 18. O2 saturation: 97%. Temp: 101.9 F. Pain level now: 010. 11/29/2016 22:04 BP: 155/92. HR: 117. RR: 18. O2 saturation: 97%. Pain level now: 11/17. 11/29/2016 21:17 BP: 157/74. HR: 117. RR: 18. O2 saturation: 97%. Temp: 102.4 F. Pain level now: 02/16. Have been reviewed. Appearance: Alert. No acute distress. Eyes: Pupils equal, round and reactive to light. ENT: Ears normal. Nose normal. Mild generalized pharyngeal erythema. No pharyngeal vesicles or ulcerations. Pharynx normal. Uvula midline. Neck: Normal inspection. Neck supple. CVS: Tachycardia. Heart sounds normal. Pulses normal. Respiratory: No respiratory distress. Breath sounds normal. Abdomen: Soft and nontender. No organomegaly. Back: Normal inspection. Skin: Skin warm and dry. Normal skin color. No rash. Normal skin turgor. Extremities: Extremities exhibit normal ROM. No lower extremity edema. Neuro: Oriented X 3. LABS, X-RAYS, AND EKG Chest X-ray: No acute disease. Normal Chest X-Ray. (Name: Washington Valle : 1980 MR#: [id number] Ordering Provider: SEGUNDO ANNA Exam(s): XR CHEST 2 VIEW Date of Exam: 11/29/2016 __ PROCEDURE: XR CHEST 2 VIEW INDICATION: SHORTNESS OF BREATH TECHNIQUE: PA and lateral view. COMPARISON: None. FINDINGS: Poor inspiration with mild bibasilar atelectasis. Cardiovascular structures are normal. Bony thorax is unremarkable. IMPRESSION: 1. Poor aspiration with mild bibasilar atelectasis. Electronically Final signed by:Sharath Slade MD 11/29/2016 11:07:21 PM Technologist: ARAMIS). The X-rays were independently viewed by me, interpreted by the radiologist and discussed with the radiologist. Laboratory Tests: UA-Culture if indicated: (YOVANI: 11/29/2016 21:34) ( MsgRcvd 11/29/2016 22:04) Final results Test Result Flag Units (Reference) URINE COLOR YELLOW URINE APPEARANCE CLEAR URINE GLUCOSE NEGATIVE (NEGATIVE) URINE BILIRUBIN NEGATIVE (NEGATIVE) URINE KETONE NEGATIVE (NEGATIVE) URINE SPECIFIC GRAVITY 1.010 (1.010-1.030) URINE PH 6.0 (5.0-8.0) URINE PROTEIN NEGATIVE (NEGATIVE) URINE UROBILINOGEN 0.2 EU/dL (0.2-1.0) URINE NITRITE NEGATIVE (NEGATIVE) URINE BLOOD TRACE-INTACT (NEGATIVE) URINE LEUK ESTERASE NEGATIVE (NEGATIVE) URINE RBC RARE rbc/hpf (0-1) URINE WBC NONE SEEN wbc/hpf (0-1) URINE EPITHELIAL CELLS NONE SEEN EPI/hpf (0-5) URINE BACTERIA NONE SEEN (NONE SEEN) URINE COMMENT CULT NOT INDICATED URINE CULTURES ARE SET-UP BASED ON THE FOLLOWING CRITERIA:POSITIVE NITRITEPOSITIVE LEUKOCYTE ESTERASEGREATER THAN 10 WHITE BLOOD CELLSMODERATE (2+) OR GREATER BACTERIA CBC w Diff: (YOVANI: 11/29/2016 21:20) ( [facility] [place] 11/29/2016 22:01) Final results Test Result Flag Units (Reference) WHITE BLOOD COUNT 11.1 K/uL (4.5-11.5) RED BLOOD COUNT 5.26 M/uL (4.50-5.90) HEMOGLOBIN 15.2 gm/dL (13.5-17.5) HEMATOCRIT 44.9 % (41.0-53.0) MEAN CELL VOLUME 86 fL (80-100) MEAN CORPUSCULAR HGB 29 pg (26-34) MEAN CORPUSCULAR HGB CONC 34 g/dL (31-37) RED CELL DISTRIBUTION WIDTH 13.5 % (11.6-14.8) PLATELET COUNT 163 K/uL (150-400) NEUTROPHIL % 85.0 H % (50-75) LYMPH % 10.9 L % (25-40) MONO % 3.4 % (3-14) EOSINOPHIL % 0.7 % (0-4) BASOPHIL % 0 % (0-2) CMP: (YOVANI: 11/29/2016 21:20) ( [facility] [place] 11/29/2016 22:14) Final results Test Result Flag Units (Reference) GLUCOSE 120 H mg/dL (70-110) BUN 13 mg/dL (7-18) CREATININE 1.1 mg/dL (0.6-1.3) Estimated GFR >60 mL/min Estimated GFR- >60 mL/min Note: Persistent reduction over 3 months in eGFR<60 mL/min/1.73 m2 defines CKD. Patients with eGFR values>=60 mL/min/1.73 m2 may also have CKD if evidence ofpersistent proteinuria. Additional information may be foundat [email or web address].org. SODIUM 141 mmol/L (136-145) POTASSIUM 3.8 mmol/L (3.5-5.1) CHLORIDE 104 mmol/L (98-107) CARBON DIOXIDE 26 mmol/L (21-32) CALCIUM 9.9 mg/dL (8.5-10.1) TOTAL PROTEIN 7.9 g/dL (6.4-8.2) ALBUMIN 4.3 g/dL (3.3-5.0) BILIRUBIN, TOTAL 0.3 mg/dL (0.0-1.0) ALKALINE PHOSPHATASE 95 U/L (46-116) AST (SGOT) 31 U/L (15-37) ALT (SGPT) 40 U/L (12-78) Culture, Strep Screen: (YOVANI: 11/29/2016 21:50) ( MsgRcvd 11/29/2016 22:26) Final results Test Result Flag Units (Reference) RAPID STREP SCREEN - THROAT DATE: 11/29/16 NEGATIVE SCREEN: RAPID STREP SCREEN NEGATIVE; CONFIRMATION TO FOLLOW Rapid Influenza Screen: (YOVANI: 11/29/2016 21:54) ( MsgRcvd 11/29/2016 22:26) Final results SPECIMEN DESCRIPTION: NASAL FOR FLU Test Result Flag Units (Reference) RAPID INFLUENZA SCREEN CALLED TO: ANIA -- DATE: 11/29/16 INFLUENZA A: NEGATIVE SCREEN FOR INFLUENZA A INFLUENZA B: POSITIVE SCREEN FOR INFLUENZA B . PROGRESS AND PROCEDURES Course of Care: Patient is stable. Physical exam findings are unchanged. CLINICAL IMPRESSION Influenza type B with pharyngitis. INSTRUCTIONS Alternate Tylenol (Acetaminophen) or Motrin (Ibuprofen) for temperature greater than 100 degrees orally. Take according to label instructions. Rest for three days until better. Do not work for four days until better. Drink plenty of fluids. Do not smoke. No alcohol. Warnings: GENERAL WARNINGS: Return or contact your physician immediately if your condition worsens or changes unexpectedly, if not improving as expected, or if other problems arise. Your Current Medications: CONTINUE TAKING THE FOLLOWING MEDICATIONS: Omeprazole Oral. Prescription Medications: Tamiflu 75 mg: take 1 capsule orally every 12 hours for 5 days. No refill. Substitution is permissible. Follow-up: Follow up with your doctor Thursday if not better. Understanding of the discharge instructions verbalized by patient. (Electronically signed by Segundo Anna PA-C 11/29/2016 23:51)
--- NOTE | 2016-11-29 23:07 | DIAGNOSTIC IMAGING REPORT ---
PROCEDURE: XR CHEST 2 VIEW INDICATION: SHORTNESS OF BREATH TECHNIQUE: PA and lateral view. COMPARISON: None. FINDINGS: Poor inspiration with mild bibasilar atelectasis. Cardiovascular structures are normal. Bony thorax is unremarkable. IMPRESSION: 1. Poor aspiration with mild bibasilar atelectasis.
--- NOTE | 2016-11-29 23:52 | ED DISCHARGE INSTRUCTIONS ---
Patient: WASHINGTON VALLE V General Instructions [facility] VisitID: [id number] [address] [place] [address] 36y, M Registration Date/Time: 11/29/2016 Influenza type B with pharyngitis. INSTRUCTIONS Alternate Tylenol (Acetaminophen) or Motrin (Ibuprofen) for temperature greater than 100 degrees orally. Take according to label instructions. Rest for three days until better. Do not work for four days until better. Drink plenty of fluids. Do not smoke. No alcohol. Warnings: GENERAL WARNINGS: Return or contact your physician immediately if your condition worsens or changes unexpectedly, if not improving as expected, or if other problems arise. Your Current Medications: CONTINUE TAKING THE FOLLOWING MEDICATIONS: Omeprazole Oral. Prescription Medications: Tamiflu 75 mg: take 1 capsule orally every 12 hours for 5 days. No refill. Substitution is permissible. Follow-up: Follow up with your doctor Thursday if not better. Understanding of the discharge instructions verbalized by patient. ADDITIONAL INFORMATION Influenza (Adult) Influenza, also called the flu, is a viral illness that affects the air passages of the lungs. It differs from the common cold. It is highly contagious. It may be spread through the air by coughing and sneezing or by direct contact (touching the sick person and then touching your own eyes, nose or mouth). Illness starts 1-3 days after exposure and lasts for 1-2 weeks. Antibiotics are usually not needed unless a complication appears (ear or sinus infection or pneumonia). Symptoms may be mild or severe and can include extreme tiredness (wanting to stay in bed all day), chills, fevers, muscle aching, soreness with eye movement, headache, and a dry, hacking cough. Home Care: Avoid exposure to cigarette smoke (yours or others). Tylenol or ibuprofen (Advil) will help fever, muscle aching, and headache. To avoid risk of liver injury, aspirin should not be used in children and teenagers under 18 with this illness. Nausea and loss of appetite are common. A light diet is recommended. Avoid dehydration by drinking 6-8 glasses of fluids per day (water, sport drinks like Gatorade, soft drinks without caffeine, juices, tea, soup, etc.). Extra fluids will also help loosen secretions in the nose and lungs. Nivb-jvq-ctqxwvv cold medicines will not shorten the duration of the illness but may be helpful for the following symptoms: cough (Robitussin DM); sore throat (Chloraseptic lozenges or spray); nasal and sinus congestion (Actifed or Sudafed). [NOTE: Do not use decongestants if you have high blood pressure.] Stay home until your fever has been gone for at least 24 hours (without the use of fever-reducing medications such as ibuprofen). Follow Up with your doctor or as directed by our staff if you are not improving over the next week. Note: If you are age 65 or older, or if you have chronic asthma or COPD, we recommend a pneumococcal vaccinationevery five years. All adults shouldreceive a yearly influenza vaccination every . Ask your doctor about this. Get Prompt Medical Attention if any of the following occur: Cough with lots of colored sputum (mucus) or blood in your sputum Chest pain, shortness of breath, wheezing, or difficulty breathing Severe headache, face, neck or ear pain New rash Fever of 100.4F (38C) oral or higher, not better with fever medication Confusion, behavior change or seizure Severe weakness or dizziness Fever Control (Adult) A fever is a natural reaction of the body to an illness. In most cases, the temperature itself is not harmful. It actually helps the body fight infections. A fever does not need to be treated unless you feel very uncomfortable. Home Care If you feel warm, check your temperature. If you feel very uncomfortable and your temperature is at or higher than 100.4F (38C) oral, you may take acetaminophen (Tylenol) every 4 to 6 hours. If you cant take or keep down oral medicine, ask your pharmacist for Tylenol suppositories, which you can get without a prescription. If the fever does not respond to acetaminophen within 1 hour, take ibuprofen (Advil or Motrin). If this works, keep taking the ibuprofen every 6 to 8 hours. Note: If you have chronic liver or kidney disease or ever had a stomach ulcer or GI bleeding, talk with your doctor before using these medications. If either medication alone does not keep the fever down, you may alternate the two medicines every 3 to 4 hours, only if your healthcare provider has instructed you to do so. For example, take Motrin then wait 3 hours, take Tylenol then wait 3 hours, take Motrin, and so on. Follow your healthcare providers instructions exactly. Clothing: Keep clothing light because excess body heat is lost through the skin. The fever will go up if you wear extra layers or wrap in blankets. Fluids: Fever causes the body to lose water through evaporation. Drink plenty of fluids such as water, juice, clear sodas, denise kale, or lemonade. Do not use aspirin in anyone under 18 years of age who is ill with a fever. It can cause severe liver damage. Follow Up with your doctor or as advised by our staff if you do not get better after 48 hours. Get Prompt Medical Attention if any of the following occur: Fever does not get better after taking fever medication Fast or difficult breathing Earache, sinus pain, stiff or painful neck, headache, repeated diarrhea or vomiting You feel unusually irritable, drowsy, or confused A rash appears You feel weak or dizzy, or that you might faint You have been given the following additional information: Influenza (Adult) Fever Control (Adult) Rest for three days until better. Do not work for four days until better. (Electronically signed by Kasey Apple PA-C 11/29/2016 23:51)
--- NOTE | 2016-11-29 23:52 | ED MED RECONCILIATION SUMMARY ---
Patient: WASHINGTON VALLE V Medication Reconciliation Report [facility] VisitID: [id number] [address] [place] [address] 36y, M Registration Date/Time: 11/29/2016 Weight: 68.0 kg Height/Length: 60 in. BMI: 29.3 ALLERGIES: Ritalin The patient's Home Medications are listed below: CONTINUE TAKING THE FOLLOWING MEDICATIONS: Omeprazole Oral The source(s) of the original Home Medication information: Not obtained. The following Medications were given to the patient in the Emergency Department: IV NS IV Fluids bolus 1000 mL wide open, administered: 11/29/2016 9:53:00 PM Ibuprofen [PO] PO 800 mg, administered: 11/29/2016 9:55:00 PM Tamiflu [PO] PO 75 mg, administered: 11/29/2016 10:29:00 PM The following Medications were prescribed to the patient: Tamiflu 75 mg: take 1 capsule orally every 12 hours for 5 days. No refill. Substitution is permissible. -- Kasey Apple PA-C
--- NOTE | 2016-11-29 23:52 | ED MAR SUMMARY ---
..... Medication Administration Record Formerly [facility] [address] [place] [address] Patient: WASHINGTON VALLE V Visit ID: [id number] 36y, M Weight: 68.0 kg Height/Length: 60 in BMI: 29.3 ALLERGIES: Ritalin Start 21:53 11/29/2016 Lidya Martinez R.N., Stop 22:49 11/29/2016 Lidya Martinez R.N. Medication Administered: IV NS (SALINE), Dose: IV Fluids, Bolus: 1000 mL wide open, Dispensed: 1000 mL bag, Site: #1 left AC. Medication Ordered: IV NS with Normal Saline 1 Liter: initial bolus none -, then 1000 mL/hr for X1 (NOW). Given 21:55 11/29/2016 Lidya Martinez R.N. Medication Administered: IBUPROFEN [PO], Dose: 800 mg Tablets PO. Medication Ordered: Ibuprofen PO 800 mg (NOW). Given 22:29 11/29/2016 Diane Acuna, Medication Administered: TAMIFLU [PO], Dose: 75 mg Capsules PO. Medication Ordered: Tamiflu PO 75 mg (NOW).
--- NOTE | 2016-11-29 23:52 | ED MED RECONCILIATION SUMMARY ---
Patient: WASHINGTON VALLE V Medication Reconciliation Report [facility] VisitID: [id number] [address] [place] [address] 36y, M Registration Date/Time: 11/29/2016 Weight: 68.0 kg Height/Length: 60 in. BMI: 29.3 ALLERGIES: Ritalin The patient's Home Medications are listed below: CONTINUE TAKING THE FOLLOWING MEDICATIONS: Omeprazole Oral The source(s) of the original Home Medication information: Not obtained. The following Medications were given to the patient in the Emergency Department: IV NS IV Fluids bolus 1000 mL wide open, administered: 11/29/2016 9:53:00 PM Ibuprofen [PO] PO 800 mg, administered: 11/29/2016 9:55:00 PM Tamiflu [PO] PO 75 mg, administered: 11/29/2016 10:29:00 PM The following Medications were prescribed to the patient: Tamiflu 75 mg: take 1 capsule orally every 12 hours for 5 days. No refill. Substitution is permissible. -- Kasey Apple PA-C
--- NOTE | 2016-11-29 23:52 | ED MAR SUMMARY ---
..... Medication Administration Record [facility] [address] [place] [address] Patient: WASHINGTON VALLE V Visit ID: [id number] 36y, M Weight: 68.0 kg Height/Length: 60 in BMI: 29.3 ALLERGIES: Ritalin Start 21:53 11/29/2016 Lidya Martinez R.N., Stop 22:49 11/29/2016 Lidya Martinez R.N. Medication Administered: IV NS (SALINE), Dose: IV Fluids, Bolus: 1000 mL wide open, Dispensed: 1000 mL bag, Site: #1 left AC. Medication Ordered: IV NS with Normal Saline 1 Liter: initial bolus none -, then 1000 mL/hr for X1 (NOW). Given 21:55 11/29/2016 Lidya Martinez R.N. Medication Administered: IBUPROFEN [PO], Dose: 800 mg Tablets PO. Medication Ordered: Ibuprofen PO 800 mg (NOW). Given 22:29 11/29/2016 Diane Acuna, Medication Administered: TAMIFLU [PO], Dose: 75 mg Capsules PO. Medication Ordered: Tamiflu PO 75 mg (NOW).
== END 2016-11-29 22:49 | disposition home or self-care (01) ==
LOC: ED SRH 20:57
DX: J10.1 Influenza due to other identified influenza virus with other respiratory manifestations (principal)
CPT/HCPCS: 90004; 90100; 90126; 90154; 90159; 91400; 95059

== ENCOUNTER 2016-12-24 06:39 | Emergency (ER) | payer OTHER ==
--- NOTE | 2016-12-25 22:09 | ED DISCHARGE INSTRUCTIONS ---
Patient: WASHINGTON VALLE V General Instructions [facility] VisitID: [id number] [address] [place] [address] 36y, M Registration Date/Time: 12/24/2016 Vomiting with nausea. Food poisoning. INSTRUCTIONS Do not work today, for one day until better. Warnings: Further evaluation is necessary. GENERAL WARNINGS: Return or contact your physician immediately if your condition worsens or changes unexpectedly, if not improving as expected, or if other problems arise. Your Current Medications: CONTINUE TAKING THE FOLLOWING MEDICATIONS: Omeprazole Oral. Prescription Medications: Zofran (orally disintegrating tablets) 4 mg: take 1 orally every 4 hours as needed for nausea. Dispense five (5). No refill. Substitution is permissible. Follow-up: Follow up with your doctor in two days if not better. Understanding of the discharge instructions verbalized by patient. ADDITIONAL INFORMATION Food Poisoning (6Yr-Adult) Food poisoning may occur from1 to 24 hours after eating food that has been contaminated or spoiled. The bacteria or toxins in contaminated or spoiled food cause symptoms very similar to the stomach flu. These include vomiting, diarrhea, stomach cramping, and fever. Food poisoning usually lasts 1 to 2 days. Antibiotics are not effective. Instead, simple home treatment will be helpful. Home Care: If symptoms are severe, rest at home for the next 24 hours. You may use acetaminophen (Tylenol) or ibuprofen (Motrin, Advil) to control fever, unless another medication was prescribed. [NOTE: If you have chronic liver or kidney disease or ever had a stomach ulcer or GI bleeding, talk with your doctor before using these medications. Do not give aspirin to anyone under 18 years of age who is ill with a fever.] Avoid tobacco, caffeine, and alcohol, which may worsen your symptoms. If medicines for diarrhea or vomiting were prescribed, take only as directed. Once vomiting stops, follow these guidelines: During the first 12-24 hours follow the diet below: BEVERAGES: Sport drinks like Gatorade, soft drinks without caffeine, denise kale, mineral water (plain or flavored), decaffeinated or herbal tea, and coffee SOUPS: Clear broth, consomm, and bouillon DESSERTS: Plain gelatin (Jell-O), popsicles, and fruit juice bars During the next 24hours you may add the following to the above: Hot cereal, plain toast, bread, rolls, crackers Plain noodles, rice, mashed potatoes, chicken noodle or rice soup Unsweetened canned fruit (avoid pineapple), bananas Limit fat intake to less than 15 grams per day by avoiding margarine, butter, oils, mayonnaise, sauces, gravies, fried foods, peanut butter, meat, poultry and fish. Limit fiber; avoid raw or cooked vegetables, fresh fruits (except bananas) and bran cereals. Limit caffeine and chocolate. No spices or seasonings except salt. Gradually resume a normal diet as you feel better and your symptoms lessen. Follow Up With Your Doctor As Advised If You Are Not Better In 2 Days. If A Stool (Diarrhea) Sample Was Taken, You May Call In 2 Days (Or As Directed) For The Results. Get Prompt Medical Attention If Any Of The Following Occur: Increasing abdominal pain or constant lower right abdominal pain Continued vomiting (unable to keep liquids down) Frequent diarrhea (more than 5 times a day) Blood in vomit or stool (black or red color) Reduced oral intake Signs of dehydration: increased thirst, dark urine, reduced or no urine output, dry mouth and tongue, tiredness or weakness, dizziness when standing, rapid breathing Fever of 100.4F (38C) oral or higher, not better with fever medication New rash Ondansetron Oral disintegrating tablet What is this medicine? ONDANSETRON (on HAMMAD se jagruti) is used to treat nausea and vomiting caused by chemotherapy. It is also used to prevent or treat nausea and vomiting after surgery. How should I use this medicine? These tablets are made to dissolve in the mouth. Do not try to push the tablet through the foil backing. With dry hands, peel away the foil backing and gently remove the tablet. Place the tablet in the mouth and allow it to dissolve, then swallow. While you may take these tablets with water, it is not necessary to do so. Talk to your pit hoist operator regarding the use of this medicine in children. Special care may be needed. What side effects may I notice from receiving this medicine? Side effects that you should report to your doctor or health health care attorney as soon as possible: allergic reactions like skin rash, itching or hives, swelling of the face, lips, or tongue breathing problems dizziness fast or irregular heartbeat feeling faint or lightheaded, falls fever and chills swelling of the hands and feet tightness in the chest Side effects that usually do not require medical attention (report to your doctor or health health care attorney if they continue or are bothersome): constipation or diarrhea headache What may interact with this medicine? Do not take this medicine with any of the following medications: -apomorphine -cisapride -dofetilide -dronedarone -pimozide -thioridazine -ziprasidone This medicine may also interact with the following medications: -carbamazepine -phenytoin -rifampicin -tramadol -other medicines that prolong the QT interval (cause an abnormal heart rhythm) What if I miss a dose? If you miss a dose, take it as soon as you can. If it is almost time for your next dose, take only that dose. Do not take double or extra doses. Where should I keep my medicine? Keep out of the reach of children. Store between 2 and 30 degrees C (36 and 86 degrees F). Throw away any unused medicine after the expiration date. What should I tell my health care provider before I take this medicine? They need to know if you have any of these conditions: heart disease history of irregular heartbeat liver disease low levels of magnesium or potassium in the blood an unusual or allergic reaction to ondansetron, granisetron, other medicines, foods, dyes, or preservatives or trying to get breast-feeding What should I watch for while using this medicine? Check with your doctor or health health care attorney as soon as you can if you have any sign of an allergic reaction. You have been given the following additional information: Food Poisoning (6Yr-Adult) Ondansetron Oral disintegrating tablet Do not work today, for one day until better. (Electronically signed by Jorge L Finch MD 12/25/2016 22:09)
--- NOTE | 2016-12-25 22:09 | ED MED RECONCILIATION SUMMARY ---
Patient: WASHINGTON VALLE V Medication Reconciliation Report [facility] VisitID: [id number] [address] [place] [address] 36y, M Registration Date/Time: 12/24/2016 Weight: 68.0 kg Height/Length: 60 in. BMI: 29.3 ALLERGIES: Cat hair, Ritalin The patient's Home Medications are listed below: CONTINUE TAKING THE FOLLOWING MEDICATIONS: Omeprazole Oral The source(s) of the original Home Medication information: Not obtained. The following Medications were given to the patient in the Emergency Department: IV NS IV Fluids bolus 1000 mL wide open, administered: 12/24/2016 7:26:00 AM Zofran [IVP] IVP 4 mg, administered: 12/24/2016 7:26:00 AM The following Medications were prescribed to the patient: Zofran (orally disintegrating tablets) 4 mg: take 1 orally every 4 hours as needed for nausea. Dispense five (5). No refill. Substitution is permissible. -- Jorge L Finch MD
--- NOTE | 2016-12-25 22:09 | ED ORDER SUMMARY ---
..... Patient: WASHINGTON VALLE V OrderSheet [facility] VisitID: [id number] [address] [place] [address] 36y, M Registration Date/Time: 12/24/2016 ORDER SHEET Weight: 68.0 kg (stated) Allergies: Ritalin, Cat hair GENERAL ORDERS: CBC w Diff Urgent (07:12/24/2016 Aj ARIAS) (7:25 EBstella) CMP Urgent (07:12/24/2016 Aj ARIAS) (7:25 EBstella) Lipase Urgent (:12/24/2016 Aj ARIAS) (7:25 EBstella) MEDICATION ORDERS: Zofran ODT PO 8 mg (NOW) (07:12/24/2016 Aj ARIAS) (Cancelled: Other7: Aj ARIAS) IV FLUIDS: IV NS : initial bolus none -, then 1000 mL/hr for X1 (NOW); Routine (07:12/24/2016 Aj ARIAS) (7:[facility]) Zofran IV 4 mg (NOW) (07:12/24/2016 Aj ARIAS) (7:26 stella) ORDER SHEET NOTES: [Electronically signed by Iveth Gonzales (08:59 12/24/2016)] [Electronically signed by Jorge L Finch MD (22:09 12/25/2016)] [Electronically locked/signed by Iveth Gonzales (08:59 12/24/2016)]
--- NOTE | 2016-12-25 22:09 | ED MED RECONCILIATION SUMMARY ---
Patient: WASHINGTON VALLE V Medication Reconciliation Report [facility] VisitID: [id number] [address] [place] [address] 36y, M Registration Date/Time: 12/24/2016 Weight: 68.0 kg Height/Length: 60 in. BMI: 29.3 ALLERGIES: Cat hair, Ritalin The patient's Home Medications are listed below: CONTINUE TAKING THE FOLLOWING MEDICATIONS: Omeprazole Oral The source(s) of the original Home Medication information: Not obtained. The following Medications were given to the patient in the Emergency Department: IV NS IV Fluids bolus 1000 mL wide open, administered: 12/24/2016 7:26:00 AM Zofran [IVP] IVP 4 mg, administered: 12/24/2016 7:26:00 AM The following Medications were prescribed to the patient: Zofran (orally disintegrating tablets) 4 mg: take 1 orally every 4 hours as needed for nausea. Dispense five (5). No refill. Substitution is permissible. -- Jorge L Finch MD
--- NOTE | 2016-12-25 22:09 | ED DISCHARGE INSTRUCTIONS ---
Patient: WASHINGTON VALLE V General Instructions [facility] VisitID: [id number] [address] [place] [address] 36y, M Registration Date/Time: 12/24/2016 Vomiting with nausea. Food poisoning. INSTRUCTIONS Do not work today, for one day until better. Warnings: Further evaluation is necessary. GENERAL WARNINGS: Return or contact your physician immediately if your condition worsens or changes unexpectedly, if not improving as expected, or if other problems arise. Your Current Medications: CONTINUE TAKING THE FOLLOWING MEDICATIONS: Omeprazole Oral. Prescription Medications: Zofran (orally disintegrating tablets) 4 mg: take 1 orally every 4 hours as needed for nausea. Dispense five (5). No refill. Substitution is permissible. Follow-up: Follow up with your doctor in two days if not better. Understanding of the discharge instructions verbalized by patient. ADDITIONAL INFORMATION Food Poisoning (6Yr-Adult) Food poisoning may occur from1 to 24 hours after eating food that has been contaminated or spoiled. The bacteria or toxins in contaminated or spoiled food cause symptoms very similar to the stomach flu. These include vomiting, diarrhea, stomach cramping, and fever. Food poisoning usually lasts 1 to 2 days. Antibiotics are not effective. Instead, simple home treatment will be helpful. Home Care: If symptoms are severe, rest at home for the next 24 hours. You may use acetaminophen (Tylenol) or ibuprofen (Motrin, Advil) to control fever, unless another medication was prescribed. [NOTE: If you have chronic liver or kidney disease or ever had a stomach ulcer or GI bleeding, talk with your doctor before using these medications. Do not give aspirin to anyone under 18 years of age who is ill with a fever.] Avoid tobacco, caffeine, and alcohol, which may worsen your symptoms. If medicines for diarrhea or vomiting were prescribed, take only as directed. Once vomiting stops, follow these guidelines: During the first 12-24 hours follow the diet below: BEVERAGES: Sport drinks like Gatorade, soft drinks without caffeine, denise kale, mineral water (plain or flavored), decaffeinated or herbal tea, and coffee SOUPS: Clear broth, consomm, and bouillon DESSERTS: Plain gelatin (Jell-O), popsicles, and fruit juice bars During the next 24hours you may add the following to the above: Hot cereal, plain toast, bread, rolls, crackers Plain noodles, rice, mashed potatoes, chicken noodle or rice soup Unsweetened canned fruit (avoid pineapple), bananas Limit fat intake to less than 15 grams per day by avoiding margarine, butter, oils, mayonnaise, sauces, gravies, fried foods, peanut butter, meat, poultry and fish. Limit fiber; avoid raw or cooked vegetables, fresh fruits (except bananas) and bran cereals. Limit caffeine and chocolate. No spices or seasonings except salt. Gradually resume a normal diet as you feel better and your symptoms lessen. Follow Up With Your Doctor As Advised If You Are Not Better In 2 Days. If A Stool (Diarrhea) Sample Was Taken, You May Call In 2 Days (Or As Directed) For The Results. Get Prompt Medical Attention If Any Of The Following Occur: Increasing abdominal pain or constant lower right abdominal pain Continued vomiting (unable to keep liquids down) Frequent diarrhea (more than 5 times a day) Blood in vomit or stool (black or red color) Reduced oral intake Signs of dehydration: increased thirst, dark urine, reduced or no urine output, dry mouth and tongue, tiredness or weakness, dizziness when standing, rapid breathing Fever of 100.4F (38C) oral or higher, not better with fever medication New rash Ondansetron Oral disintegrating tablet What is this medicine? ONDANSETRON (on HAMMAD se jagruti) is used to treat nausea and vomiting caused by chemotherapy. It is also used to prevent or treat nausea and vomiting after surgery. How should I use this medicine? These tablets are made to dissolve in the mouth. Do not try to push the tablet through the foil backing. With dry hands, peel away the foil backing and gently remove the tablet. Place the tablet in the mouth and allow it to dissolve, then swallow. While you may take these tablets with water, it is not necessary to do so. Talk to your mid level java developer regarding the use of this medicine in children. Special care may be needed. What side effects may I notice from receiving this medicine? Side effects that you should report to your doctor or health palliative care specialist as soon as possible: allergic reactions like skin rash, itching or hives, swelling of the face, lips, or tongue breathing problems dizziness fast or irregular heartbeat feeling faint or lightheaded, falls fever and chills swelling of the hands and feet tightness in the chest Side effects that usually do not require medical attention (report to your doctor or health palliative care specialist if they continue or are bothersome): constipation or diarrhea headache What may interact with this medicine? Do not take this medicine with any of the following medications: -apomorphine -cisapride -dofetilide -dronedarone -pimozide -thioridazine -ziprasidone This medicine may also interact with the following medications: -carbamazepine -phenytoin -rifampicin -tramadol -other medicines that prolong the QT interval (cause an abnormal heart rhythm) What if I miss a dose? If you miss a dose, take it as soon as you can. If it is almost time for your next dose, take only that dose. Do not take double or extra doses. Where should I keep my medicine? Keep out of the reach of children. Store between 2 and 30 degrees C (36 and 86 degrees F). Throw away any unused medicine after the expiration date. What should I tell my health care provider before I take this medicine? They need to know if you have any of these conditions: heart disease history of irregular heartbeat liver disease low levels of magnesium or potassium in the blood an unusual or allergic reaction to ondansetron, granisetron, other medicines, foods, dyes, or preservatives or trying to get breast-feeding What should I watch for while using this medicine? Check with your doctor or health palliative care specialist as soon as you can if you have any sign of an allergic reaction. You have been given the following additional information: Food Poisoning (6Yr-Adult) Ondansetron Oral disintegrating tablet Do not work today, for one day until better. (Electronically signed by Jorge L Finch MD 12/25/2016 22:09)
--- NOTE | 2016-12-25 22:09 | ED MAR SUMMARY ---
..... Medication Administration Record [facility] [address] [place] [address] Patient: WASHINGTON VALLE V Visit ID: [id number] 36y, M Weight: 68.0 kg Height/Length: 60 in BMI: 29.3 ALLERGIES: Cat hair, Ritalin Start 07:26 12/24/2016 Iveth Gonzales,, Stop 08:56 12/24/2016 Iveth Gonzales, Medication Administered: IV NS (SALINE), Dose: IV Fluids, Bolus: 1000 mL wide open, Dispensed: 1000 mL bag, Site: #1 right forearm. Medication Ordered: IV NS : initial bolus none -, then 1000 mL/hr for X1 (NOW); Routine. Given 07:12/24/2016 Iveth Gonzales, Medication Administered: ZOFRAN [IVP] (ONDANSETRON HCL), Dose: 4 mg IVP, Site: #1 right forearm. Medication Ordered: Zofran IV 4 mg (NOW).
--- NOTE | 2016-12-25 22:09 | ED NURSING NOTES ---
Clinical Report - Nurses [facility] [address] [place] [address] 12/24/2016 6:38 Patient: WASHINGTON VALLE V TRIAGE Triage time 06:43. Acuity: LEVEL 3. Chief Complaint: NAUSEA and VOMITING and (vomiting once last night, nausea since then). Alert. STEPHANIE COMA SCORE: Stephanie Coma Scale: 15- eyes open spontaneously (4); best verbal response- oriented x 4 (5); best motor response- obeys commands (6). --06:47 Waqar Nelson R.N. 06:43 12/24/16. BP: 139/93. HR: 88. RR: 24 (regular and unlabored). O2 saturation: 97%. Temp: 98.2 F (oral). Pain level now: 02/16. --06:47 Waqar Nelson R.N. Weight: 68 kg stated. Height/Length: 60 inches Per Patient. BMI: 29.3. --06:45 Waqar Nelson R.N. Medications Omeprazole Oral. --06:46 Waqar Nelson R.N. Allergies Ritalin. Definite Moderate(anxiety) --06:46 Waqar Nelson R.N. Cat hair. --06:46 Waqar Nelson R.N. History Arrived by EMS. Historian: patient. This started last night. SOCIAL HX: Heavy tobacco smoker (cigarette)- 1 pack per day. Occasional alcohol use. No drug use. ( denies si/hi, States that he feels safe at home.). ABUSE ASSESSMENT: Abuse history: reports abuse. SELF HARM ASSESSMENT: A self harm assessment was performed. The patient answered "no" to the question "Do you have thoughts of harming or killing yourself?" and "Are you here because you tried to hurt yourself?". FALL RISK ASSESSMENT: Fall risk assessment completed. No fall risk identified. NUTRITIONAL RISK ASSESSMENT: The nutritional risk assessment revealed no deficiencies. FUNCTIONAL ASSESSMENT: Functional assessment: no impairments noted. LEARNING NEEDS ASSESSMENT: The learning needs assessment revealed no barriers. SKIN INTEGRITY ASSESSMENT: Skin integrity risk assessment completed. No skin integrity risk identified. --06:47 Waqar Nelson R.N. 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 --06:46 Waqar Nelson R.N. Depression. Gastroesophageal Reflux Disease. --06:46 Waqar Nelson R.N. ADDITIONAL SURGERIES: no known surgeries. Interventions ID band on patient. To treatment room. --06:47 Waqar Nelson R.N. PHYSICAL ASSESSMENT To room via stretcher. ( pt states that his stomach began to hurt last night after eating "chickens feet" and states that he vomiting once). GENERAL / NEURO / PSYCH: Alert. Oriented X 4. Appears anxious. RESPIRATORY: Respirations not labored. CVS: Capillary refill less than 2 seconds. GI / : Abdomen soft. Abdominal tenderness. SKIN: Skin is warm and dry. --06:49 Waqar Nelson R.N. NURSING PROGRESS NOTES Patient gowned. Head of bed elevated. Reassurance given. Two patient identifiers checked. Call light placed in reach. Side rails up x 1. Bed placed in lowest position. Brakes of bed on. Patient ready for evaluation- chart flagged. Patient waiting for evaluation. --06:49 Waqar Nelson R.N. ( Mirella Hubbard RN attempted to start an IV on patient, unsuccessl with 2 attempts.). --07:00 Waqar Nelson R.N. 07:12/24/2016 Site #1 started via IV in the right forearm with an 22g angiocath, with aseptic technique and good blood return; one attempt. Blood drawn: rainbow set. Labeled in the presence of the patient and sent to the lab. Saline lock flushed with 10 mL saline. --07:26 Iveth Gonzales 07:12/24/2016 Started bag #1 1000 mL IV Fluids IV NS (Saline); bolus of 1000 mL wide open via site #1. Allergies verified and confirmed 5 rights. IV patency established. IV site checked: no pain, redness, or swelling. IV flushed thoroughly pre- and post-medication administration. --07:26 Iveth Gonzales 07:12/24/2016 Zofran (Ondansetron HCl) IVP 4 mg given. via site #1. Allergies verified and confirmed 5 rights. IV patency established. IV site checked: no pain, redness, or swelling. IV flushed thoroughly pre- and post-medication administration. IVP given by RN. --07:26 Iveth Gonzales 08:29 12/24/16. BP: 111/59. HR: 79. RR: 16. O2 saturation: 96%. --08:29 Iveth Gonzales 08:56 12/24/2016 IV Fluids IV NS Discontinued: bag #1 STOPPED upon discharge. Total amount infused: 900 mL. IV patency established. IV site checked: no pain, redness, or swelling. IV flushed thoroughly. --08:56 Iveth Gonzales 08:57 12/24/2016 Site #1 removed upon discharge. Catheter intact. Pressure dressing applied. --08:57 Iveth Gonzales Reassessment after medication administered. He has had no adverse reaction. Overall patient status is improved- he states feels better. --08:57 Iveth Gonzales. DISPOSITION / DISCHARGE Departure time: 0855. Condition at departure: improved and stable. No learning barriers present. Discharge instructions provided and reviewed with the patient. Reviewed medication(s). Work note given. Patient verbalized understanding. Written instructions provided in Gabonese. The patient was discharged by the physician. He was discharged home and unaccompanied at time of discharge. He left the Emergency Department ambulatory and via ([employer] Manager Employment driving. --08:58 Iveth Gonzales. Locked/Released at 12/24/2016 8:59 by Iveth Gonzales,
--- NOTE | 2016-12-25 22:09 | ED MAR SUMMARY ---
..... Medication Administration Record [facility] [address] [place] [address] Patient: WASHINGTON VALLE V Visit ID: [id number] 36y, M Weight: 68.0 kg Height/Length: 60 in BMI: 29.3 ALLERGIES: Cat hair, Ritalin Start 07:26 12/24/2016 Iveth Gonzales,, Stop 08:56 12/24/2016 Iveth Gonzales, Medication Administered: IV NS (SALINE), Dose: IV Fluids, Bolus: 1000 mL wide open, Dispensed: 1000 mL bag, Site: #1 right forearm. Medication Ordered: IV NS : initial bolus none -, then 1000 mL/hr for X1 (NOW); Routine. Given 07:12/24/2016 Iveth Gonzales, Medication Administered: ZOFRAN [IVP] (ONDANSETRON HCL), Dose: 4 mg IVP, Site: #1 right forearm. Medication Ordered: Zofran IV 4 mg (NOW).
--- NOTE | 2016-12-25 22:09 | ED ORDER SUMMARY ---
..... Patient: WASHINGTON VALLE V OrderSheet [facility] VisitID: [id number] [address] [place] [address] 36y, M Registration Date/Time: 12/24/2016 ORDER SHEET Weight: 68.0 kg (stated) Allergies: Ritalin, Cat hair GENERAL ORDERS: CBC w Diff Urgent (07:12/24/2016 Aj ARIAS) (7:25 EBstella) CMP Urgent (07:12/24/2016 Aj ARIAS) (7:25 EBstella) Lipase Urgent (:12/24/2016 Aj ARIAS) (7:25 EBstella) MEDICATION ORDERS: Zofran ODT PO 8 mg (NOW) (07:12/24/2016 Aj ARIAS) (Cancelled: Other7: Aj ARIAS) IV FLUIDS: IV NS : initial bolus none -, then 1000 mL/hr for X1 (NOW); Routine (07:12/24/2016 Aj ARIAS) ([facility] Zofran IV 4 mg (NOW) (07:12/24/2016 Aj ARIAS) (7:26 stella) ORDER SHEET NOTES: [Electronically signed by Iveth Gonzales (08:59 12/24/2016)] [Electronically signed by Jorge L Finch MD (22:09 12/25/2016)] [Electronically locked/signed by Iveth Gonzales (08:59 12/24/2016)]
--- NOTE | 2016-12-25 22:09 | ED CLINICAL REPORT ---
Clinical Report - Physicians/Mid Levels [facility] [address] [place] [address] 12/24/2016 6:38 Patient: WASHINGTON VALLE V Time Seen: 07:01 Dec 24 2016. Arrived- By ambulance. Historian- patient and EMS personnel. CPT: ER phys charges level 4 (#[id number]). HISTORY OF PRESENT ILLNESS Chief Complaint: VOMITING. This started last night Ate chicken at the food bank at 1900 and developed acute vomiting at 0300. and is still present. No recent travel. He has had nausea, vomiting and abdominal pain. Has not recently been camping or on antibiotics. Possible bad food exposure. No known contact with a sick individual. The illness is described as moderate. Similar symptoms previously: None. Recent medical care: Not recently seen/assessed. REVIEW OF SYSTEMS No fever, muscle aches, difficulty with urination, dark urine or headache. No dizziness, sore throat, cough, chest pain or difficulty breathing. No skin rash, jaundice or back pain. All systems otherwise negative, except as recorded above. 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 Depression. Gastroesophageal Reflux Disease. Additional Surgeries: no known surgeries. Medications: Omeprazole Oral. Allergies: Cat hair. Ritalin. Definite Moderate(anxiety). SOCIAL HISTORY Heavy tobacco smoker (cigarette)- 1 pack per day. Occasional alcohol use. ADDITIONAL NOTES The nursing notes have been reviewed. PHYSICAL EXAM Vital Signs: 12/24/2016 06:43 BP: 139/93. HR: 88. RR: 24. O2 saturation: 97%. Temp: 98.2 F. Pain level now: 7/10. Appearance: Alert. Anxious. Patient in mild distress. Eyes: Eyes normal inspection. ENT: Pharynx normal. Neck: Normal inspection. CVS: Normal heart rate and rhythm. Heart sounds normal. Pulses normal. Respiratory: No respiratory distress. Breath sounds normal. Abdomen: Soft. Mild tenderness in the periumbilical area. Bowel sounds normal. Back: Normal inspection. Skin: Normal skin color. No rash. Neuro: Oriented X 3. LABS, X-RAYS, AND EKG Laboratory Tests: CBC w Diff: (YOVANI: 12/24/2016 07:20) ( MsgRcvd 12/24/2016 07:34) Final results Test Result Flag Units (Reference) WHITE BLOOD COUNT 14.4 H K/uL (4.5-11.5) RED BLOOD COUNT 5.73 M/uL (4.50-5.90) HEMOGLOBIN 16.4 gm/dL (13.5-17.5) HEMATOCRIT 48.8 % (41.0-53.0) MEAN CELL VOLUME 85 fL (80-100) MEAN CORPUSCULAR HGB 29 pg (26-34) MEAN CORPUSCULAR HGB CONC 34 g/dL (31-37) RED CELL DISTRIBUTION WIDTH 13.1 % (11.6-14.8) PLATELET COUNT 193 K/uL (150-400) NEUTROPHIL % 83.6 H % (50-75) LYMPH % 11.6 L % (25-40) MONO % 3.8 % (3-14) EOSINOPHIL % 0.6 % (0-4) BASOPHIL % 0.4 % (0-2) CMP: (YOVANI: 12/24/2016 07:20) ( MsgRcvd 12/24/2016 08:00) Final results Test Result Flag Units (Reference) GLUCOSE 117 H mg/dL (70-110) BUN 23 H mg/dL (7-18) CREATININE 1.0 mg/dL (0.6-1.3) Estimated GFR >60 mL/min Estimated GFR- >60 mL/min Note: Persistent reduction over 3 months in eGFR<60 mL/min/1.73 m2 defines CKD. Patients with eGFR values>=60 mL/min/1.73 m2 may also have CKD if evidence ofpersistent proteinuria. Additional information may be foundat www.kidney.org. SODIUM 144 mmol/L (136-145) POTASSIUM 3.5 mmol/L (3.5-5.1) CHLORIDE 104 mmol/L (98-107) CARBON DIOXIDE 33 H mmol/L (21-32) CALCIUM 9.4 mg/dL (8.5-10.1) TOTAL PROTEIN 7.7 g/dL (6.4-8.2) ALBUMIN 4.2 g/dL (3.3-5.0) BILIRUBIN, TOTAL 0.3 mg/dL (0.0-1.0) ALKALINE PHOSPHATASE 98 U/L (46-116) AST (SGOT) 25 U/L (15-37) ALT (SGPT) 41 U/L (12-78) LIPASE 199 U/L (73-393) . PROGRESS AND PROCEDURES Course of Care: IV NS Zofran 4 mg IV Patient is stable. Symptoms much better. Able to take po. Patient/family counseled. Disposition: Discharged. Condition: stable. CLINICAL IMPRESSION Vomiting with nausea. Food poisoning. INSTRUCTIONS Do not work today, for one day until better. Warnings: Further evaluation is necessary. GENERAL WARNINGS: Return or contact your physician immediately if your condition worsens or changes unexpectedly, if not improving as expected, or if other problems arise. Your Current Medications: CONTINUE TAKING THE FOLLOWING MEDICATIONS: Omeprazole Oral. Prescription Medications: Zofran (orally disintegrating tablets) 4 mg: take 1 orally every 4 hours as needed for nausea. Dispense five (5). No refill. Substitution is permissible. Follow-up: Follow up with your doctor in two days if not better. Understanding of the discharge instructions verbalized by patient. (Electronically signed by Jorge L Finch MD 12/25/2016 22:09)
== END 2016-12-24 08:55 | disposition home or self-care (01) ==
LOC: ED SRH 06:39
DX: R11.2 Nausea with vomiting, unspecified (principal); T62.91XA Toxic effect of unspecified noxious substance eaten as food, accidental (unintentional), initial encounter; K21.9 Gastro-esophageal reflux disease without esophagitis; X58.XXXA Exposure to other specified factors, initial encounter; F17.210 Nicotine dependence, cigarettes, uncomplicated; Y93.9 Activity, unspecified; Y99.9 Unspecified external cause status; Z79.899 Other long term (current) drug therapy; Z88.8 Allergy status to other drugs, medicaments and biological substances; Z91.09 Other allergy status, other than to drugs and biological substances
CPT/HCPCS: 90100; 92235; 95059